=== PATIENT | male | born 1985 | race Caucasian/White ===

== ENCOUNTER 2016-10-26 12:21 | Emergency (ER) | payer SELFPAY ==
[~2016-10-26] VITALS: Ht 172.7 cm; Wt 81.8 kg
[2016-10-26] MEDS ORDERED: PERTUSS(ACELL),DIPH,TET VAC/PF 0.5 ML VIAL IM ONE (15:00)
[2016-10-26 15:17] LABS: ANION GAP 4 mmol/L (8-16); CALCIUM, TOTAL 8.7 mg/dL (8.8-10.5); CARBON DIOXIDE 31 mmol/L (22-29); CHLORIDE 106 mmol/L (98-107); CREATININE 0.84 mg/dL (0.60-1.30); GLOMERULAR FILTR. RATE CALC > 60 mL/min (>60); GLUCOSE,RANDOM 113 mg/dL (70-110); POTASSIUM 4.4 mmol/L (3.5-5.1); SODIUM SERUM 141 mmol/L (136-145); UREA NITROGEN, BLOOD 9 mg/dL (7-18)
[2016-10-26 15:24] VITALS: BP 112/71
== END 2016-10-26 15:39 | disposition home or self-care (01) ==
LOC: EMS 12:22
DX: L03.113 Cellulitis of right upper limb (principal); L03.116 Cellulitis of left lower limb; L03.114 Cellulitis of left upper limb; E11.9 Type 2 diabetes mellitus without complications; I10 Essential (primary) hypertension; Z59.0 Homelessness
CPT/HCPCS: 90471; 90715; 99283; 99284

== ENCOUNTER 2017-07-13 01:38 | Emergency (ER) | payer SELFPAY ==
[~2017-07-13] VITALS: Ht 172.7 cm; Wt 101.0 kg
[2017-07-13 03:13] LABS: GLUCOSE,POINT OF CARE 152 MG/DL (70-110)
[2017-07-13] MEDS ORDERED: BACITRACIN 0.9 GM PACKET OINTMENT TP ONE (03:15)
[2017-07-13] MEDS ORDERED: PERTUSS(ACELL),DIPH,TET VAC/PF 0.5 ML VIAL IM ONE (03:15)
[2017-07-13] MEDS ORDERED: BUPIVACAINE HCL/PF 0.5% 10 ML VIAL PERC ONE (03:15)
[2017-07-13] MEDS ORDERED: BUPIVACAINE HCL/PF 0.5% 30 ML VIAL PERC ONE (03:30)
[2017-07-13 04:50] VITALS: BP 110/79
== END 2017-07-13 05:19 | disposition home or self-care (01) ==
LOC: EMS 01:39
DX: S81.811A Laceration without foreign body, right lower leg, initial encounter (principal); E11.9 Type 2 diabetes mellitus without complications; I10 Essential (primary) hypertension; W18.39XA Other fall on same level, initial encounter; Y93.89 Activity, other specified; Y92.89 Other specified places as the place of occurrence of the external cause; Y99.8 Other external cause status
CPT/HCPCS: 12002; 73590; 82962; 90471; 90715; 99284; J3490